=== PATIENT | female | born 1995 | race Two or more races ===

== ENCOUNTER 2017-06-24 09:31 | Emergency (ER) | payer OTHER ==
[~2017-06-24] VITALS: Ht 160 cm; Wt 62.6 kg
== END 2017-06-24 13:33 | disposition home or self-care (01) ==
LOC: ER 09:31
DX: J02.9 Acute pharyngitis, unspecified (principal); J03.90 Acute tonsillitis, unspecified

== ENCOUNTER 2019-07-25 23:59 | Emergency (ER) | payer OTHER ==
[~2019-07-25] VITALS: Ht 160 cm; Wt 65.8 kg
[2019-07-26] MEDS ORDERED: PREVACID30 MG (00:16)
[2019-07-26] MEDS ORDERED: PEPCID AC20 MG (00:16)
== END 2019-07-26 06:14 | disposition home or self-care (01) ==
LOC: ER 23:59
DX: K21.9 Gastro-esophageal reflux disease without esophagitis (principal); K52.89 Other specified noninfective gastroenteritis and colitis; E86.0 Dehydration